=== PATIENT | male | born 1990 | race Caucasian/White ===

== ENCOUNTER 2017-04-23 21:12 | Emergency (ER) | payer SELFPAY ==
[~2017-04-23] VITALS: Ht 182.9 cm; Wt 90.9 kg
[2017-04-23 23:20] LABS: INFLUENZA TYPE A POSITIVE FOR TYPE A (NEGATIVE); INFLUENZA TYPE B NEGATIVE FOR TYPE B (NEGATIVE)
[2017-04-23 23:30] VITALS: BP 126/79
== END 2017-04-23 23:31 | disposition home or self-care (01) ==
LOC: EMS 21:15
DX: J11.1 Influenza due to unidentified influenza virus with other respiratory manifestations (principal); F17.210 Nicotine dependence, cigarettes, uncomplicated
CPT/HCPCS: 87804; 99284